=== PATIENT | female | born 2000 | race Hispanic/Latino ===

== ENCOUNTER 2023-06-20 21:58 | Emergency (ER) | payer OTHER, SELFPAY ==
[2023-06-20 22:14] VITALS: BP 123/82; PULSE 83; RESP 18; TEMP 36.8; O2SAT 98
--- NOTE | 2023-06-21 01:00 | ED.BACK ---
HPI - Back Pain/Injury General Chief Complaint: Back Pain/Injury Stated Complaint: back pain Time Seen by Provider: 06/20/23 23:17 History of Present Illness HPI Narrative: 22-year-old female reports for evaluation for low back pain that started yesterday. Patient states she was in a car when she had sudden onset low back pain that is worse with movement. States on the back pain 1st started, it radiated down to her knees bilaterally. She reports taking Tylenol without relief. Denies dysuria, hematuria, saddle anesthesia, loss of bowel or bladder control or retention, fever, recent surgeries or procedures to her back, use of steroids or immunosuppressants, fever. Related Data Allergies Allergy/AdvReac Type Severity Reaction Status Date / Time No Known Allergies Allergy Verified 06/20/23 22:17 Review of Systems Review of Systems: CONSTITUTIONAL: Denies fever, chills, or sweats. EYES: Denies visual changes, redness, or discharge. ENT: Denies rhinorrhea, congestion, sore throat, or otalgia. CARDIOVASCULAR: Denies chest pain, palpitations, or edema. RESPIRATORY: Denies cough or dyspnea. GASTROINTESTINAL: Denies abdominal pain, nausea, vomiting, or diarrhea. GENITOURINARY: Denies dysuria or hematuria. SKIN: Denies rash or itching. MUSCULOSKELETAL: See HPI NEUROLOGIC: Denies headache, numbness, or weakness. PSYCHIATRIC: Denies anxiety or depression. PMFSH Past Medical History Medical History Anxiety Family History Family History Sibling Depression Anxiety Social History Social History Smoking status: Never smoker Alcohol intake: never Substance use: never Living arrangements: with roommate(s) Occupation/Education: student Additional occupation/education comments: [employer] Gender identity (if verbalized by the patient): Female Exam Narrative: GENERAL: Well-appearing, well-nourished, and in no acute distress. HEAD: Normocephalic, atraumatic. NECK: Supple. CHEST: Clear to auscultation. No respiratory distress. HEART: Regular rate and rhythm. No murmur heard. Normal peripheral pulses. ABDOMEN: Soft, nontender, nondistended, normal active bowel sounds. No rebound, guarding or rigidity. No CVA tenderness. BACK: No thoracic lumbar spinous tenderness, step-offs or deformities. Mild tenderness to the midline thoracic spine with associated paraspinous tenderness in tenderness across her entire low back. No overlying skin changes. No crepitus, step-offs or deformities. EXTREMITIES: Normal range of motion. No edema. Strength 5/5 in bilateral lower extremities. Sensation intact throughout. No saddle anesthesia. Patient ambulatory without ataxia. SKIN: Warm, dry, no rash. NEURO: No focal deficits. Alert and oriented x3 Course Vital Signs Vital signs: Vital Signs Temperature 98.2 F 06/20/23 22:14 Pulse Rate 83 06/20/23 22:14 Respiratory Rate 18 06/20/23 22:14 Blood Pressure 123/82 06/20/23 22:14 Pulse Oximetry 98 06/20/23 22:14 Oxygen Delivery Room Air 06/20/23 22:14 Temperature 98.3 F 06/21/23 02:23 Pulse Rate 77 06/21/23 02:23 Respiratory Rate 14 06/21/23 02:23 Blood Pressure 126/76 06/21/23 02:23 Pulse Oximetry 99 06/21/23 02:23 Oxygen Delivery Room Air 06/20/23 22:14 MDM - Back Pain/Injury MDM Narrative Medical decision making narrative: 22-year-old female reports for evaluation for low back pain x1 day. Vital stable and she is afebrile. Patient is well-appearing on exam. No fever neurovascular deficits. She is ambulatory. No red flag back pain signs. negative. UA is unremarkable, no UTI or hematuria. Patient received ibuprofen, Flexeril and topical lidocaine patches improvement in symptoms. Will send the same medications to the pharmacy and encourage myles
[2023-06-21 01:34] LABS: Appearance Urine Clear (Clear); Bilirubin Urine Negative (Negative); Blood Urine Negative (Negative); Color Urine Yellow (Yellow); Glucose Urine UA Negative (Negative); Ketones Urine Negative (Negative); Leukocyte Esterase Ur Negative LEU/UL (Negative); Nitrate Urine Negative (Negative); Protein Urine Negative (Negative); Urobilinogen Urine 0.2 mg/dL (<2.0)
[2023-06-21 01:44] LABS: Add Urine Microscopic? NO
[2023-06-21] MEDS: CYCLOBENZAPRINE HCL 10 MG TABLET PO (01:51)
[2023-06-21] MEDS: LIDOCAINE 5% PATCH 1 PATCH TRANSDERM (01:52)
[2023-06-21] MEDS: IBUPROFEN 400 MG TABLET 800 MG PO (01:52)
[2023-06-21 02:23] VITALS: BP 126/76; PULSE 77; RESP 14; TEMP 36.8; O2SAT 99
== END 2023-06-21 02:25 | disposition home or self-care (01) ==
PROVIDERS: Emergency Provider Physician Assistant
DX: M54.50 Low back pain, unspecified (principal); F41.9 Anxiety disorder, unspecified
CPT/HCPCS: 81003; 81025; 99283; A9270

== ENCOUNTER 2024-05-17 09:14 | Emergency (ER) | payer OTHER, SELFPAY ==
--- NOTE | ~2024-05-17 | CT_ITS ---
EXAMINATION: CT abdomen pelvis wo con DATE: 05/17/2024 11:04 INDICATION: Right flank pain. Right upper quadrant abdominal pain and hematuria. TECHNIQUE: Computed tomography (CT) of the abdomen and pelvis was performed without intravenous contr ast. Automated exposure control and iterative reconstruction technique were employed. The dose-length product was 1409.00 mGy-cm. COMPARISON: None FINDINGS: Lung bases are clear. Heart size normal. No pericardial or pleural effusion. Liver, gallbladder, sple en, pancreas and bilateral adrenal glands are normal. 3 mm stone at the right ureterovesicular juncti on. Bilateral kidneys and ureters are normal with no hydroureteronephrosis or other evident urolithia sis. Bladder is normal. Bowels are normal. Likely normal appendix coiled in the tip of the appendix w ith no surrounding from trace stranding to suggest acute appendicitis. Anteverted uterus and bilatera l adnexa are unremarkable. No free intraperitoneal gas or fluid. No pathologically enlarged abdominal or pelvic lymphadenopathy. Bones are unremarkable. IMPRESSION: 1. 3 mm nonobstructing stone at the right ureterovesicular junction. Reviewed, dictated and finalized at location B. [employer]
[2024-05-17 09:17] VITALS: BP 117/88; PULSE 80; RESP 18; TEMP 36.7; O2SAT 100
--- NOTE | 2024-05-17 09:52 | ED_ITS ---
HPI - Female Genitourinary General Chief complaint: Urogenital-Female Stated complaint: hematuria, right flank pain Time Seen by Provider: 05/17/24 09:36 History of Present Illness HPI Narrative: 23-year-old female presents emergency department for right flank pain she woke up with this morning. States she went to bed in her normal state of health. Woke up with pain in her right upper quadrant right flank. She went to [facility] and was told she had blood in her urine and was sent to the ED to rule out a kidney stone. Patient denies history of kidney stones. Denies dysuria, gross hematuria, urinary frequency urgency, fever, N/V. She states the pain waxes and wanes and at times is still and at times sharp. She denies aggravating or alleviating factors. Related Data Allergies Allergy/AdvReac Type Severity Reaction Status Date / Time No Known Allergies Allergy Verified 06/20/23 22:17 Review of Systems Review of Systems: All systems reviewed & are unremarkable except as noted in HPI and below PMFSH Past Medical History Medical History Anxiety Family History Family History Sibling Depression Anxiety Social History Social History Smoking status: Never smoker Alcohol intake: never Substance use: never Living arrangements: with roommate(s) Occupation/Education: student Additional occupation/education comments: [employer] Gender identity (if verbalized by the patient): Female Exam Narrative: GENERAL: Well-appearing, well-nourished, and in no acute distress. HEAD: Normocephalic, atraumatic. EYES: EOMI. ENT: Nares clear, no rhinorrhea or epistaxis. Mucous membranes moist. NECK: Supple. CHEST: Clear to auscultation. No respiratory distress. HEART: Regular rate and rhythm. No murmur heard. Normal peripheral pulses. ABDOMEN: Normoactive bowel sounds. Abdomen soft with minimal tenderness in the RUQ and R CVA region. no rebound, guarding or rigidity. Negative Bailey's sign. EXTREMITIES: Normal range of motion. No edema. SKIN: Warm, dry, no rash. NEURO: No focal deficits. Alert and oriented x3 Course Vital Signs Vital signs: Vital Signs Temperature 98.1 F 05/17/24 09:17 Pulse Rate 80 05/17/24 09:17 Respiratory Rate 18 05/17/24 09:17 Blood Pressure 117/88 05/17/24 09:17 Pulse Oximetry 100 05/17/24 09:17 Oxygen Delivery Room Air 05/17/24 09:17 Temperature 98.1 F 05/17/24 09:17 Pulse Rate 80 05/17/24 09:17 Respiratory Rate 18 05/17/24 09:17 Blood Pressure 117/88 05/17/24 09:17 Pulse Oximetry 100 05/17/24 09:17 Oxygen Delivery Room Air 05/17/24 09:17 MDM - Female Genitourinary MDM Narrative Medical decision making narrative: 23-year-old female presents to the emergency department for right flank pain she woke up with this morning. Patient was found have hematuria in her urine urgent care sent to the ED to rule out a kidney stone. Vitals are stable. Exam is significant for the above. CBC with mild leukocytosis of 10.8. Chemistries are unremarkable. Creatinine is normal at 0.5. UA with 51-100 RBCs, no WBCs or nitrates. is negative. CT abdomen pelvis reveals a 3 mm nonobstructing stone at the right UVJ. Patient updated on workup. Offered pain medications in the ED, she politely declined several times. I advised her to take ibuprofen as needed for pain, Leeds for breakthrough pain provided. Encouraged Zofran for nausea and close follow-up with Urology. Urine strainer provided. Strict ED return precautions discussed. She is agreeable to the plan and verbalized understanding. Discharged in stable condition. Lab Data 05/17/24 10:28 05/17/24 10:28 Labs: Lab Results 05/17/24 05/17/24 05/17/24 Range/Units 10:28 10:37 10:39 WBC 10.8 H (4.5-10.0) K/mm3 RBC 4.99 (4.2-5.4) M/mm3 Hgb 13.2 (12.0-15.0) g/dL Hct 41.2 (37.0-47.0) % MCV 82.6 (80-100) fl MCH 26.5 (26-34) pg MCHC 32.0 (32-36) g/dl RDW 13.8 (11.5-14.5) % Plt Count 343 (150-375) k/mm3 MPV 9.8 (7.4-10.4) fl Immature Gran % (Auto) 0.3 (0-0.5) % Neut % (Auto) 74.9 H (45.5-73.1) % Lymph % (Auto) 18.6 (18.3-44.2) % [place] % (Auto) 5.5 (2.6-8.5) % Eos % (Auto) 0.2 (0-4.4) % Baso % (Auto) 0.5 (0.2-1.2) % Lymph # (Auto) 2.01 (0.9-3.2) K/mm3 [place] # (Auto) 0.6 (0.1-0.6) K/mm3 Eos # (Auto) 0.0 (0-0.3) K/mm3 Baso # (Auto) 0.1 (0.0-0.1) K/mm3 Abs Immat Gran (auto) 0.03 (0.00-0.031) K/mm3 Absolute Neuts (auto) 8.1 H (1.3-6.7) K/mm3 Absolute Nucleated RBC 0.000 (0.0-0.012) K/mm3 Nucleated RBC % 0.0 (0.0-0.2) % Sodium 137 (137-145) mmol/L Potassium 4.2 (3.4-5.0) mmol/L Chloride 102 (98-107) mmol/L Carbon Dioxide 28 (22-30) mmol/L Anion Gap 7 (4-12) mmol/L BUN 10 (7-17) mg/dL Creatinine 0.50 L (0.7-1.0) mg/dL Estim Creat Clear Calc 199 ml/min Estimated GFR > 60 (59 - ) Glucose 94 (65-110) mg/dL Calcium 9.2 (8.4-10.2) mg/dL Total Bilirubin 0.5 (0.2-1.3) mg/dL AST 26 (14-36) U/L ALT 15 (6-35) U/L Alkaline Phosphatase 120 (38-126) U/L Total Protein 9.0 H (6.3-8.2) g/dL Albumin 4.5 (3.5-5.1) g/dL Urine Color Yellow (Yellow) Urine Appearance Clear (Clear) Urine pH 8.0 (5.0-9.0) Ur Specific [place] 1.006 (1.001-1.035) Urine Protein Negative (Negative) mg/dL Urine Glucose (UA) Negative (Negative) mg/dL Urine Ketones Negative (Negative) mg/dL Ur Blood (Man) 3+ H (Negative) Urine Nitrate Negative (Negative) Urine Bilirubin Negative (Negative) Urine Urobilinogen 0.2 (<2.0) mg/dL Leukocyte Esterase Rfl Negative (Negative) CRISTOBAL/UL Urine RBC 51-100 H (0-2) /hpf Urine WBC 0-5 (0-3) /hpf Ur Squamous Epith Cells None seen (Few) /hpf Urine Bacteria None seen /hpf Urine Casts 0-2 POC Urine HCG, Qual Negative (Negative) Discharge Plan Discharge Clinical Impression: Right ureteral stone Patient Disposition: Home, Self-Care Condition: Stable Instructions: Antibiotic Form, Kidney Stones (ED) Additional Instructions: You were evaluated in the emergency department for right flank pain and blood in your urine. You were found have a 3 mm kidney stone in your ureter that is about to enter into her bladder. Please take ibuprofen as needed for pain and Leeds for breakthrough pain. Take the ondansetron as needed for nausea. Take the Flomax to help dilate your ureter. Use the urine strainer as discussed. Follow-up with urologist. Return to the emergency department if he develops significantly worsening pain, you are unable to tolerate food or fluids, fever, or other concerning symptoms. Prescriptions: New ondansetron 4 mg tablet,disintegrating 4 mg PO Q8H Qty: 14 0RF tamsulosin [Flomax] 0.4 mg capsule 0.4 mg PO HS Qty: 14 0RF hydrocodone-acetaminophen 5-325 mg tablet 1 tablet PO Q8H PRN (Reason: pain) Qty: 14 0RF No Action cyclobenzaprine 10 mg tablet 10 mg PO TID PRN (Reason: muscle spasm) Qty: 20 0RF lidocaine 5 % adhesive patch,medicated 1 patch topical DAILY Qty: 15 0RF Rx Instructions: leave on most painful area for up to 12 hrs. do not use more than 1 patch in a 24-hour period. ibuprofen 800 mg tablet 800 mg PO TID PRN (Reason: pain) Qty: 20 0RF Follow-up/Referrals: Narciso Hong MD [Physician] - 1 Day UNKNOWN,DOCTOR [Primary Care Provider] -
[2024-05-17 10:32] LABS: Basophils Absolute Auto 0.1 K/mm3 (0.0-0.1); Basophils Percent Auto 0.5 % (0.2-1.2); Eosinophils Percent Auto 0.2 % (0-4.4); Hematocrit 41.2 % (37.0-47.0); Hemoglobin 13.2 g/dL (12.0-15.0); Immature Granulocyte Absolute 0.03 K/mm3 (0.00-0.031); Immature Granulocyte Percent A 0.3 % (0-0.5); Lymphocytes Absolute Auto 2.01 K/mm3 (0.9-3.2); Lymphocytes Percent Auto 18.6 % (18.3-44.2); Mean Corpuscular Hemoglobin 26.5 pg (26-34); Mean Corpuscular Volume 82.6 fl (80-100); Mean Platelet Volume 9.8 fl (7.4-10.4); Monocytes Absolute Auto 0.6 K/mm3 (0.1-0.6); Monocytes Percent Auto 5.5 % (2.6-8.5); Neutrophils Absolute Auto 8.1 K/mm3 (1.3-6.7); Neutrophils Percent Auto 74.9 % (45.5-73.1); Platelet Count Result 343 k/mm3 (150-375); Red Blood Count 4.99 M/mm3 (4.2-5.4); Red Cell Distribution Width 13.8 % (11.5-14.5); White Blood Count 10.8 K/mm3 (4.5-10.0)
[2024-05-17 10:40] LABS: BEDSIDEPREGUCG Negative (Negative)
[2024-05-17 10:43] LABS: Alanine Aminotransferase 15 U/L (6-35); Albumin Level 4.5 g/dL (3.5-5.1); Alkaline Phosphatase 120 U/L (38-126); Anion Gap 7 mmol/L (4-12); Aspartate Amino Transferase 26 U/L (14-36); Bilirubin,Total 0.5 mg/dL (0.2-1.3); Blood Urea Nitrogen 10 mg/dL (7-17); Calcium 9.2 mg/dL (8.4-10.2); Carbon Dioxide 28 mmol/L (22-30); Chloride 102 mmol/L (98-107); Estimated CRCL calculation 199 ml/min; Estimated Glomerular Filt Rate > 60; Glucose 94 mg/dL (65-110); Potassium 4.2 mmol/L (3.4-5.0); Sodium 137 mmol/L (137-145)
[2024-05-17 10:51] LABS: Add Urine Microscopic? YES; Appearance Urine Clear (Clear); Bacteria Urine None Seen /hpf; Bilirubin Urine Negative (Negative); Blood Urine 3+ (Negative); Color Urine Yellow (Yellow); Glucose Urine UA Negative (Negative); Ketones Urine Negative (Negative); Leukocyte Esterase Ur Negative LEU/UL (Negative); Nitrate Urine Negative (Negative); Non Pathogenic Casts 0-2; Protein Urine Negative (Negative); RBC Urine 51-100 /hpf (0-2); Specific Grav Ur 1.006 (1.001-1.035); Squamous Epithelial Cell Urine None Seen /hpf (Few); Urobilinogen Urine 0.2 mg/dL (<2.0); WBC Urine 0-5 /hpf (0-3)
== END 2024-05-17 12:05 | disposition home or self-care (01) ==
PROVIDERS: Emergency Provider Physician Assistant
DX: N20.1 Calculus of ureter (principal)
CPT/HCPCS: 36415; 74176; 80053; 81001; 81025; 85025; 99284